=== PATIENT | female | born 1985 | race Hispanic/Latino ===

== ENCOUNTER 2018-08-03 08:58 | Emergency (ER) | payer MEDICAID, OTHER ==
[2018-08-03] MEDS ORDERED: DEXAMETHASONE SOD PHOSPHATE 10MG/ML 1ML VIAL ONE (09:49)
== END 2018-08-03 09:54 | disposition home or self-care (01) ==
LOC: EDH 08:58
DX: L23.9 Allergic contact dermatitis, unspecified cause (principal); Z72.0 Tobacco use
CPT/HCPCS: 96372; 99283; J1100

== ENCOUNTER 2024-08-20 20:41 | Emergency (ER) | payer MEDICAID ==
[~2024-08-20] VITALS: Ht 162.6 cm; Wt 69.9 kg
[2024-08-20 21:34] LABS: BASOPHILS # (AUTO) 0.03 K/uL (0.00-0.20); BASOPHILS % (AUTO) 0.5 % (0.0-5.0); EOSINOPHILS # (AUTO) 0.06 K/uL (0.00-0.70); EOSINOPHILS % (AUTO) 1.1 % (0.0-8.0); HEMATOCRIT 28.1 % (36-48); IMMATURE GRANULOCYTE ABSOLUTE 0.01 K/uL (0-1); LYMPHOCYTES # (AUTO) 1.7 K/uL (1.0-4.8); LYMPHOCYTES % (AUTO) 29.7 % (21.0-51.0); MEAN CORPUSCULAR HEMOGLOBIN 22.6 pg (27.0-33.0); MEAN CORPUSCULAR HGB CONC 29.5 g/dL (32.0-36.0); MEAN CORPUSCULAR VOLUME 76.4 fL (79-99); MONOCYTES # (AUTO) 0.5 K/uL (0.1-1.0); MONOCYTES % (AUTO) 8.7 % (3.0-13.0); NEUTROPHILS # (AUTO) 3.4 K/uL (1.8-7.7); NEUTROPHILS % (AUTO) 59.8 % (40.0-77.0); PLATELET COUNT (AUTO) 282 K/uL (130-400); RED BLOOD CELL COUNT(AUTO) 3.68 MIL/uL (4.00-5.50); WHITE BLOOD COUNT (AUTO) 5.7 K/uL (4.8-10.8)
[2024-08-20 21:42] LABS: CREATININE 0.6 mg/dL (0.5-1.0); POTASSIUM 4.1 mmol/L (3.5-5.1)
[2024-08-20 22:00] VITALS: TEMP 98.2
[2024-08-20 22:11] LABS: APPEARANCE,URINE CLOUDY (CLEAR); BILIRUBIN,URINE NEGATIVE (NEGATIVE); COLOR,URINE LIGHT-RED (YELLOW); GLUCOSE, URINE (UA) NEGATIVE (NEGATIVE); KETONES,URINE NEGATIVE (NEGATIVE); LEUKOCYTE ESTERASE ,URINE 75 Leu/uL (NEGATIVE); NITRATE,URINE NEGATIVE (NEGATIVE); OCCULT BLOOD,URINE LARGE (NEGATIVE); PH,URINE 6.5 (5.0-8.0); PROTEIN,URINE 100 mg/dL (NEGATIVE); UROBILINOGEN,URINE 0.2 mg/dL (0.2-1.0)
[2024-08-20 22:12] LABS: ADD UA MICROSCOPIC YES
[2024-08-20 22:14] LABS: BACTERIA,URINE RARE /HPF (None Seen); RBC,URINE TNTC /HPF (0-1); SQUAMOUS EPITHELIAL CELL,UR FEW /HPF (0-2); UNCLASSIFIED CRYSTAL 12 /HPF (None Seen); WBC CLUMP RARE /HPF (0-1); WBC,URINE 26-50 /HPF (0-1)
[2024-08-20] MEDS ORDERED: MACR100 PO (22:31)
[2024-08-20] MEDS: cefTRIAXone 1G VIAL IVPB ONE (22:54)
[2024-08-20 23:33] VITALS: BP 138/89; PULSE 75; RESP 16; O2SAT 100
== END 2024-08-20 23:40 | disposition left against medical advice (07) ==
LOC: EDH 20:41
DX: D64.89 Other specified anemias (principal); N39.0 Urinary tract infection, site not specified; Z79.899 Other long term (current) drug therapy; Z98.51 Tubal ligation status; Z98.890 Other specified postprocedural states
CPT/HCPCS: 99283; 96374; 80048; 84703; 85025; 87086; 81001; 36415; J0696